=== PATIENT | male | born 1955 | race Caucasian/White ===

== ENCOUNTER 2016-11-11 16:40 | Emergency (ER) | payer SELFPAY ==
[~2016-11-11] VITALS: Ht 180.3 cm; Wt 69.0 kg
[~2016-11-11 16:40] MED LIST: AMLO5TAB96 PO; CLIN150 PO; IBUP600T26 PO; LISI-360 PO
[2016-11-11 16:42] VITALS: BP 226/126; PULSE 95; RESP 17; TEMP 98; O2SAT 96
[2016-11-11 17:23] VITALS: BP 202/117; PULSE 80
[2016-11-11] MEDS ORDERED: LISI-515 PO ×2 (18:35→20:13)
[2016-11-11] MEDS ORDERED: AMLO5 PO (18:35)
[2016-11-11 18:43] VITALS: BP 207/120; PULSE 81; RESP 18
--- NOTE | 2016-11-11 18:50 | PD ---
HPI Chief Complaint: Fall Time Seen by Provider: 18:50 Travel History International Travel<30 days: No Contact w/Intl Traveler<30days: No Traveled to known affect area: No History of Present Illness HPI 61-year-old male presents to the emergency department for evaluation of right lateral chest wall pain after a fall 2 days ago. Patient states that he tripped and fell hitting his right ribs against a corner of a washing machine. He denies hitting his head or any LOC. Patient Denies any neck pain or back pain. No abdominal pain. No nausea or vomiting. He has been ambulatory. Patient states he would like to know if he broke a rib. He does report a history of hypertension and is supposed to be taking lisinopril, amlodipine, hydrochlorothiazide. However, he states he has not taken these since August. Patient denies any associated complaints. He denies any other complaints at this time. PFSH Past Medical History Cardiovascular Problems: Yes (HTN) Diminished Hearing: No Hypertension: Yes Immunizations Current: Yes Tetanus Vaccination: < 5 Years Influenza Vaccination: No Past Surgical History Surgical History: No Previous Surgery Social History Alcohol Use: Yes (occasionally) Tobacco Use: Yes (one pack per day) Substance Use: No Allergies-Medications (Allergen,Severity, Reaction): Coded Allergies: No Known Allergies (Unverified , 11/11/16) Reported Meds & Prescriptions Reported Meds & Active Scripts Active Lortab (Hydrocodone-Acetaminophen) 5-325 Mg Tab 1 Tab PO Q6H PRN Reported Lisinopril 20 Mg Tab 20 Mg PO DAILY Norvasc (Amlodipine Besylate) 5 Mg Tab 5 Mg PO DAILY Review of Systems Except as stated in HPI: all other systems reviewed are Neg Physical Exam Narrative GENERAL: Well-developed well-nourished male patient ambulatory. Afebrile., SKIN: Warm and dry. HEAD: Normocephalic. Atraumatic. ENT: Mucosa pink and moist. No erythema or exudates. No uvular edema. No uvular , palatal, or tonsillar deviation. Airway patent. Nasal turbinates appear normal without nasal blood, purulent drainage or septal hematoma. Bilateral tympanic membranes are clear without erythema or perforation. EYES: No scleral icterus. No injection or drainage. NECK: Supple, trachea midline. No JVD or lymphadenopathy. CARDIOVASCULAR: Regular rate and rhythm without murmurs, gallops, or rubs. RESPIRATORY: Breath sounds equal bilaterally. No accessory muscle use. Lungs sounds are clear to auscultation. GASTROINTESTINAL: Abdomen soft, non-tender, nondistended. No abdominal pain to palpation. MUSCULOSKELETAL: No cyanosis, or edema. Patient has tenderness to palpation over right anterior/lateral chest wall. BACK: Nontender without obvious deformity. No CVA tenderness. Data Data Last Documented VS Vital Signs Date Time Temp Pulse Resp B/P Pulse Ox O2 Delivery O2 Flow Rate FiO2 11/11/16 19:22 76 18 220/110 Room Air 11/11/16 19:22 98 11/11/16 16:42 98.0 Orders Ribs, Uni (W/Exp Cxr-Min 3vw) (11/11/16 ) Lisinopril (Prinivil) (11/11/16 19:00) Amlodipine (Norvasc) (11/11/16 19:00) Resp Incentive Spirometry (11/11/16 ) Oxycodone-Acetamin 5-325 Mg (Percocet (11/11/16 20:15) MDM Medical Decision Making Medical Screen Exam Complete: Yes Emergency Medical Condition: Yes Medical Record Reviewed: Yes Interpretation(s) Last Impressions Ribs X-Ray 11/11/16 0000 Signed Impressions: Service Date/Time: October 19:03 - CONCLUSION: Minimally displaced right fifth and sixth rib fractures without pneumothorax. Mynor Martinez MD Differential Diagnosis Rib fracture versus rib contusion versus pneumothorax Narrative Course 61-year-old male presents to the emergency department for evaluation of right rib pain after a trip and fall 2 days ago. Patient is hypertensive in the emergency department, however, he has not been taking his prescribed blood pressure medication in 2 months. Patient is given dose of lisinopril and amlodipine in the emergency department. X-ray of the right ribs with chest are ordered and pending. X-ray of the right ribs with chest shows minimally displaced right fifth and sixth rib fractures without pneumothorax. Patient is given incentive spirometer. He'll be discharged with a short-term prescription for Lortab. Patient also be given prescriptions for his Lortab and amlodipine. He is encouraged to follow his primary care physician for further refills. He is encouraged to continue deep breathing and follow up with his primary care physician. He verbalizes agreement and understanding. Diagnosis Primary Impression: Right rib fracture Qualified Code: S22.41XA - Closed fracture of multiple ribs of right side, initial encounter Additional Impression: Hypertension Qualified Code: I10 - Essential hypertension Referrals: Primary Care Physician call for appointment Patient Instructions: General Instructions, Rib Fracture (ED) Additional Instructions: Rotate ice/heat. Take Lortab as directed as needed for pain. Caution this can make you drowsy since do not drive after taking. Make sure you continue to take deep breaths. Use incentive spirometer. Your blood pressure was elevated today. I have given you refills of your blood pressure medications. He felt your primary care physician for further refills. Follow-up with your primary care physician. Return to the emergency department for any acute worsening of symptoms. Med/Other Pt SpecificInfo: Prescription(s) given Scripts Lisinopril 20 Mg Tab20 Mg PO DAILY #30 TAB Ref 0 Prov:Ambreen Holt 11/11/16 Amlodipine 5 Mg Tab5 Mg PO DAILY #30 TAB Ref 0 Prov:Ambreen Holt 11/11/16 Hydrocodone-Acetaminophen (Lortab)5-325 Mg Tab1 Tab PO Q6H PRN (PAIN) #16 TAB Ref 0 Prov:Daniel Herr MD 11/11/16 Disposition: 01 DISCHARGE HOME Condition: Stable Ambreen Holt Nov 11, 2016 18:50
[2016-11-11] MEDS ORDERED: LISINOPRIL 20 MG TAB PO ONE (19:00)
[2016-11-11] MEDS ORDERED: amLODIPine BESYLATE 5 MG TAB PO ONE (19:00)
--- NOTE | 2016-11-11 19:21 | RADRPT ---
EXAM DATE/TIME: 11/11/2016 19:03 [facility] COMPARISON: No previous studies available for comparison. INDICATIONS : Right rib pain after fall on corner of [employer] machine. MEDICAL HISTORY : None. SURGICAL HISTORY : None. ENCOUNTER: Initial ACUITY: 3 days PAIN SCORE: 8/10 LOCATION: Right lateral ribs. FINDINGS: Minimally displaced fractures are seen anterolaterally the right fifth and sixth ribs. A tiny right p leural effusion is suspected. I don't see a pneumothorax. No chest wall emphysema seen. CONCLUSION: Minimally displaced right fifth and sixth rib fractures without pneumothorax. Mynor Martinez MD on November 11, 2016 at 19:19 Board Certified Radiologist. This report was verified electronically.
[2016-11-11 19:22] VITALS: BP 220/110; PULSE 76; RESP 18
[2016-11-11] MEDS ORDERED: HYDR-3533 PO (20:04)
[2016-11-11 20:13] VITALS: BP 196/100; PULSE 79; RESP 17; O2SAT 99
[2016-11-11] MEDS ORDERED: AMLO5TAB2 PO (20:13)
[2016-11-11] MEDS ORDERED: oxyCODONE/ACETAMINOPHEN 5 MG/325 MG TAB PO ONE (20:15)
[2016-11-11 20:40] VITALS: BP 160/86; TEMP 97.8
== END 2016-11-11 20:40 | disposition home or self-care (01) ==
LOC: NEPA 16:40
DX: S22.41XA Multiple fractures of ribs, right side, initial encounter for closed fracture (principal); W22.09XA Striking against other stationary object, initial encounter; W18.30XA Fall on same level, unspecified, initial encounter; I10 Essential (primary) hypertension; F17.210 Nicotine dependence, cigarettes, uncomplicated
CPT/HCPCS: 71101; 94150; 99284

== ENCOUNTER 2017-02-24 13:15 | Emergency (ER) | payer SELFPAY ==
[~2017-02-24] VITALS: Ht 180.3 cm; Wt 73.0 kg
[~2017-02-24 13:15] MED LIST changes: +AMLO5 PO; +AMLO5TAB2 PO; -AMLO5TAB96 PO; -CLIN150 PO; +HYDR-3533 PO; -IBUP600T26 PO; -LISI-360 PO; +LISI-515 PO
[2017-02-24 13:16] VITALS: BP 217/127; PULSE 84; RESP 17; TEMP 98.4; O2SAT 99
[2017-02-24] MEDS ORDERED: HYDROmorphone HCL PF 1 MG/ML VIAL IV PUSH ONE ×2 (14:00→15:45)
[2017-02-24 14:31] LABS: BACTERIA, URINE RARE /hpf; BLOOD, URINE SMALL (NEG); COMMENT (UR) CULTURE INDICATED; CULTURE IF INDICATED CULTURE INDICATED; GLUCOSE,URINE NEG (NEG); KETONE, URINE NEG (NEG); NITRITE,URINE NEG (NEG); SQUAMOUS EPITHELIAL CELL URINE 1 /hpf (0-5); URINE COLOR YELLOW (YELLW/STRAW)
[2017-02-24 14:52] LABS: ALKALINE PHOSPHATASE 111 U/L (45-117); TOTAL BILIRUBIN ADULT 1.2 MG/DL (0.2-1.0)
[2017-02-24 15:21] VITALS: BP 254/129; PULSE 81; RESP 17; O2SAT 99
[2017-02-24 15:22] LABS: BASOPHIL % 0.2 % (0.0-2.0); EOSINOPHIL # 0.4 TH/MM3 (0-0.4); EOSINOPHIL % 2.2 % (0.0-4.0); HEMATOCRIT 41.5 % (39.0-51.0); LYMPH % 16.4 % (9.0-44.0); LYMPHOCYTE # 2.7 TH/MM3 (1.0-4.8); MEAN CORPUSCULAR HEMOGLOBIN 31.6 PG (27.0-34.0); MEAN CORPUSCULAR HGB CONC 34.7 % (32.0-36.0); NEUT % 72.2 % (16.0-70.0); PLATELET COUNT 154 TH/MM3 (150-450); RED BLOOD COUNT 4.56 MIL/MM3 (4.50-5.90); RED CELL DISTRIBUTION WIDTH 13.1 % (11.6-17.2); WHITE BLOOD COUNT 16.7 TH/MM3 (4.0-11.0)
[2017-02-24 15:23] LABS: HEMO FLAGS AUTO DIFF
[2017-02-24] MEDS ORDERED: LISINOPRIL 10 MG TAB PO ONE (15:30)
[2017-02-24 15:41] LABS: ALT (GPT) 66 U/L (12-78); ANION GAP 5 MEQ/L (5-15); AST (GOT) 84 U/L (15-37); BICARBONATE 27.6 MEQ/L (21.0-32.0); BLOOD UREA NITROGEN 13 MG/DL (7-18); CHLORIDE 102 MEQ/L (98-107); GLOMERULAR FILTRATION RATE 61 ML/MIN (>89); SODIUM (NA) 135 MEQ/L (136-145)
[2017-02-24 15:46] LABS: POTASSIUM 3.6 MEQ/L (3.5-5.1)
--- NOTE | 2017-02-24 15:48 | PD ---
HPI Chief Complaint: Complaint Time Seen by Provider: 13:46 Travel History International Travel<30 days: No Contact w/Intl Traveler<30days: No Traveled to known affect area: No History of Present Illness HPI Patient is a 61-year-old male who comes in complaining of right testicular pain and swelling. He says that the pain started 2 days ago and has gotten worse. He reports 3 days ago he slipped getting off the bus and his legs spread apart. He said he did not fall at the time. He does say that he has some pain to the left side of his neck. He did not his head or lose consciousness. He denies any chest pain or shortness of breath. He denies any abdominal pain. He denies any penile discharge, and says he has not been sexually active recently. [facility] Past Medical History Cardiovascular Problems: Yes (HTN) Diminished Hearing: No Hypertension: Yes Immunizations Current: Yes Tetanus Vaccination: > 5 Years Influenza Vaccination: No Past Surgical History Surgical History: No Previous Surgery Social History Alcohol Use: Yes (occasionally) Tobacco Use: Yes (one pack per day) Substance Use: No Allergies-Medications (Allergen,Severity, Reaction): Coded Allergies: No Known Allergies (Unverified , 02/24/17) Reported Meds & Prescriptions Reported Meds & Active Scripts Active No Active Prescriptions or Reported Medications Review of Systems Except as stated in HPI: all other systems reviewed are Neg General / Constitutional: No: Fever, Chills HENT: No: Headaches, Lightheadedness Cardiovascular: No: Chest Pain or Discomfort Respiratory: No: Shortness of Breath Gastrointestinal: No: Abdominal Pain Genitourinary: Positive: Other (testicular pain) Musculoskeletal: Positive: Myalgias Skin: No Rash, No Change in Pigmentation Neurologic: No: Weakness, Dizziness, Paresthesia Physical Exam Narrative GENERAL: Awake and alert, in no acute distress. SKIN: Focused skin assessment warm/dry. HEAD: Atraumatic. Normocephalic. EYES: Pupils equal and round. No scleral icterus. ENT: Mucous membranes pink and moist. NECK: Trachea midline. No JVD. CARDIOVASCULAR: Regular rate and rhythm. No murmur appreciated. RESPIRATORY: No accessory muscle use. Clear to auscultation. Breath sounds equal bilaterally. GASTROINTESTINAL: Abdomen soft, non-tender, nondistended. : Performed in the presence of a female nurseAlly. Large swelling to the right testicle, vertical lay. Tender to palpation of the testicle, worst on the epididymis. MUSCULOSKELETAL: No obvious deformities. No clubbing. No cyanosis. No edema. NEUROLOGICAL: Awake and alert. No obvious cranial nerve deficits. Motor grossly within normal limits. Normal speech. PSYCHIATRIC: Appropriate mood and affect; insight and judgment normal. Data Data Last Documented VS Vital Signs Date Time Temp Pulse Resp B/P Pulse Ox O2 Delivery O2 Flow Rate FiO2 02/24/17 16:26 20 02/24/17 16:09 108 236/117 99 Room Air Orders Complete Blood Count With Diff (02/24/17 13:53) Comprehensive Metabolic Panel (02/24/17 13:53) Lactic Acid (02/24/17 13:53) Urinalysis - C+S If Indicated (02/24/17 13:53) Us Testicles W Doppler (02/24/17 ) Hydromorphone Pf Inj (Dilaudid Pf Inj) (02/24/17 14:00) Urine Culture (02/24/17 14:15) Amlodipine (Norvasc) (02/24/17 15:30) Lisinopril (Prinivil) (02/24/17 15:30) Gc And Chlamydia Pcr (02/24/17 15:30) Hydromorphone Pf Inj (Dilaudid Pf Inj) (02/24/17 15:45) Ceftriaxone Inj (Rocephin Inj) (02/24/17 16:45) Labs Laboratory Tests Test 02/24/17 02/24/17 14:15 14:50 Urine Color YELLOW Urine Turbidity HAZY Urine pH 6.0 Urine Specific Tillman 1.016 Urine Protein TRACE mg/dL Urine Glucose (UA) NEG mg/dL Urine Ketones NEG mg/dL Urine Occult Blood SMALL Urine Nitrite NEG Urine Bilirubin NEG Urine Urobilinogen 8.0 MG/DL Urine Leukocyte Esterase LARGE Urine RBC 9 /hpf Urine WBC 60 /hpf Urine Squamous Epithelial 1 /hpf Cells Urine Bacteria RARE /hpf Microscopic Urinalysis Comment CULTURE INDICATED Sodium Level 135 MEQ/L Potassium Level 3.6 MEQ/L Chloride Level 102 MEQ/L Carbon Dioxide Level 27.6 MEQ/L Anion Gap 5 MEQ/L Blood Urea Nitrogen 13 MG/DL Creatinine 1.22 MG/DL Estimat Glomerular Filtration 61 ML/MIN Rate Random Glucose 90 MG/DL Lactic Acid Level 0.8 mmol/L Calcium Level 9.0 MG/DL Total Bilirubin 1.2 MG/DL Aspartate Amino Transf 84 U/L (AST/SGOT) Alanine Aminotransferase 66 U/L (ALT/SGPT) Alkaline Phosphatase 111 U/L Total Protein 8.6 GM/DL Albumin 3.5 GM/DL White Blood Count 16.7 TH/MM3 Red Blood Count 4.56 MIL/MM3 Hemoglobin 14.4 GM/DL Hematocrit 41.5 % Mean Corpuscular Volume 91.0 FL Mean Corpuscular Hemoglobin 31.6 PG Mean Corpuscular Hemoglobin 34.7 % Concent Red Cell Distribution Width 13.1 % Platelet Count 154 TH/MM3 Mean Platelet Volume 8.3 FL Neutrophils (%) (Auto) 72.2 % Lymphocytes (%) (Auto) 16.4 % Monocytes (%) (Auto) 9.0 % Eosinophils (%) (Auto) 2.2 % Basophils (%) (Auto) 0.2 % Neutrophils # (Auto) 12.0 TH/MM3 Lymphocytes # (Auto) 2.7 TH/MM3 Monocytes # (Auto) 1.5 TH/MM3 Eosinophils # (Auto) 0.4 TH/MM3 Basophils # (Auto) 0.0 TH/MM3 CBC Comment AUTO DIFF Differential Comment AUTO DIFF CONFIRMED Platelet Estimate NORMAL Platelet Morphology Comment NORMAL MDM Medical Decision Making Medical Screen Exam Complete: Yes Emergency Medical Condition: Yes Medical Record Reviewed: Yes Differential Diagnosis Epididymitis versus orchitis versus hernia versus STD Narrative Course Patient is a 61-year-old male comes in complaining of severe right testicular pain. Exam shows swelling and tenderness along the epididymis. There is no hernia palpated. IV established, labs sent. Patient given Dilaudid for pain. Labs show blood cell count of 16.7. Urinalysis is positive for infection. Patient reports she has not been sexually active in a very long time and does not think he has been exposed to gonorrhea or chlamydia. Ultrasound performed shows evidence of epididymoorchitis. Patient given Rocephin here. discharged with prescription for Levaquin (given goodrx coupon). Mandatory referral placed to urology. Patient given strict return precautions. Diagnosis Primary Impression: Epididymo-orchitis Referrals: Lux Kraft MD call for appointment Patient Instructions: Epididymo-Orchitis (ED), General Instructions Additional Instructions: Take all of your antibiotics. Take Ibuprofen as needed for pain, Lortab for severe pain. You can use ice for pain control (make sure to place a barrier between the ice and your skin). Follow up with urology. Return to the ED as needed for any worsening symptoms. Scripts Hydrocodone-Acetaminophen (Lortab)5-325 Mg Tab1 Tab PO Q6H PRN (PAIN) #12 TAB Ref 0 Prov:Francesca Buitrago MD 02/24/17 Levofloxacin (Levaquin)500 Mg Cds983 Mg PO DAILY 10 Days Ref 0 Prov:Francesca Buitrago MD 02/24/17 Disposition: 01 DISCHARGE HOME Condition: Stable Francesca Buitrago MD February 24, 2017 15:48
[2017-02-24 15:58] LABS: PLATELET ESTIMATE SMEAR NORMAL (NORMAL); PLATELET MORPHOLOGY NORMAL (NORMAL); SCAN/DIFF AUTO DIFF CONFIRMED
[2017-02-24 16:09] VITALS: BP 236/117; PULSE 108; RESP 17; O2SAT 99
--- NOTE | 2017-02-24 16:22 | RADRPT ---
EXAM DATE/TIME: 02/24/2017 15:50 [facility] COMPARISON: No previous studies available for comparison. INDICATIONS : Right testicle pain and redness. MEDICAL HISTORY : Hypertension. SURGICAL HISTORY : None. ENCOUNTER: Initial ACUITY: 2 days PAIN SCORE: 6/10 LOCATION: Bilateral testicle. MEASUREMENTS: RIGHT TESTICLE: 4.7 x 3.7 x 3.2cm LEFT TESTICLE: 4.5 x 3.5 x 2.1cm FINDINGS: RIGHT TESTICLE: Homogeneous echotexture without intra or extratesticular mass. Blood flow is asymmetrically increase d within the testicle and epididymis. Epididymis is mildly enlarged. There is a small complex hydroce le. No varicocele. LEFT TESTICLE: Homogeneous echotexture without intra or extratesticular mass. Blood flow is symmetric and within no rmal limits. No hydrocele or varicocele. Epididymis is within normal limits. SCROTUM: Within normal limits. CONCLUSION: 1. The above findings are diagnostic of right epididymoorchitis with complex small hydrocele likely r elated to infection. 2. Left testicle has a normal appearance. Mynor Fang MD on February 24, 2017 at 16:18 Board Certified Radiologist. This report was verified electronically.
[2017-02-24] MEDS ORDERED: LEVA500T PO (16:40)
[2017-02-24] MEDS ORDERED: HYDR-3533 PO (16:40)
[2017-02-24] MEDS ORDERED: cefTRIAXone INJ 1,000 MG in SODIUM CHLORIDE 0.9% INJ 100 ML IV ONE (16:45)
[2017-02-24 17:05] VITALS: BP 182/110; PULSE 95; RESP 16; O2SAT 99
[2017-02-24 17:45] LABS: CHLAMYDIA PCR NOT DETECTED (NOT DETECT); NEISSERIA PCR NOT DETECTED (NOT DETECT)
== END 2017-02-24 17:33 | disposition home or self-care (01) ==
LOC: NEPD 13:15
DX: N45.3 Epididymo-orchitis (principal); I10 Essential (primary) hypertension; F17.210 Nicotine dependence, cigarettes, uncomplicated; B96.20 Unspecified Escherichia coli [E. coli] as the cause of diseases classified elsewhere
CPT/HCPCS: 76870; 80053; 81001; 83605; 85025; 87077; 87086; 87186; 87491; 87591; 93975; 96365; 96375; 96376; 99284; J0696; J1170

== ENCOUNTER 2018-02-25 16:29 | Emergency (ER) | payer SELFPAY ==
[~2018-02-25 16:29] MED LIST changes: -AMLO5 PO; -AMLO5TAB2 PO; +LEVA500T PO; -LISI-515 PO
[2018-02-25 17:08] VITALS: BP 142/86; PULSE 78; RESP 18; TEMP 98; O2SAT 97
[2018-02-25] MEDS ORDERED: HYDR12.57 PO (17:18)
[2018-02-25] MEDS ORDERED: AMLO10 PO (17:18)
[2018-02-25] MEDS ORDERED: LISI-515 PO (17:18)
[2018-02-25] MEDS ORDERED: ASPI-516 CHEW (17:18)
[2018-02-25] MEDS ORDERED: MORPHINE SULFATE 2 MG/ML SYRINGE IV PUSH ONE (17:30)
[2018-02-25] MEDS ORDERED: TETANUS/DIPHTHERIA TOXOID ADULT 0.5 ML VIAL IM ONE (17:30)
--- NOTE | 2018-02-25 17:34 | PD ---
HPI Chief Complaint: Injury Time Seen by Provider: 17:27 Travel History International Travel<30 days: No Contact w/Intl Traveler<30days: No Traveled to known affect area: No History of Present Illness HPI 62-year-old male here for evaluation of left arm injury. The patient states that he tripped walking down 2 steps and struck his left arm against the wall. He denies head injury or LOC. He did sustain a laceration to the palmar surface of his left hand which he believes was on a staple on the wall. Pain is mainly in the patient's left shoulder and arm and is moderate to severe, constant, worse with movement and palpation, slightly improved with rest. No head neck or back pain. He has mild pain in his left forearm and hand which is also worse with movements. He is right-hand dominant. PFSH Past Medical History Cardiovascular Problems: Yes (HTN) Diminished Hearing: No Hypertension: Yes Immunizations Current: Yes Tetanus Vaccination: < 5 Years Past Surgical History Surgical History: No Previous Surgery Social History Alcohol Use: Yes (occasionally) Tobacco Use: Yes (one pack per day) Substance Use: No Allergies-Medications (Allergen,Severity, Reaction): Coded Allergies: No Known Allergies (Unverified Adverse Reaction, Unknown, 02/25/18) Reported Meds & Prescriptions Reported Meds & Active Scripts Active Reported Aspirin 81 Mg Chew 81 Mg CHEW DAILY Hydrochlorothiazide 12.5 Mg Cap 12.5 Mg PO DAILY Norvasc (Amlodipine Besylate) 10 Mg Tab 10 Mg PO DAILY Lisinopril 20 Mg Tab 20 Mg PO DAILY Review of Systems Except as stated in HPI: all other systems reviewed are Neg Physical Exam Narrative GENERAL: Well-developed, well-nourished, awake, alert, no apparent distress. SKIN: Focused skin assessment warm/dry. V-shaped laceration to the hyporthenar eminence of the left hand, moderate depth, no visible contaminants, no active bleeding. HEAD: Atraumatic. Normocephalic. EYES: Pupils equal and round. No scleral icterus. No injection or drainage. ENT: Mucous membranes pink and moist. NECK: Trachea midline. No JVD. No midline cervical spine step-off or tenderness. CARDIOVASCULAR: Regular rate and rhythm. Bilateral distal radial pulses are brisk and equal. RESPIRATORY: No accessory muscle use. Clear to auscultation. Breath sounds equal bilaterally. MUSCULOSKELETAL: Left upper extremity without obvious deformity with moderate diffuse tenderness to the left shoulder and left humerus. Skin exam as above. All compartments in the left upper extremity are supple. Left upper extremity is neurovascularly intact. NEUROLOGICAL: Awake and alert. No obvious cranial nerve deficits. Motor grossly within normal limits. Normal speech. PSYCHIATRIC: Appropriate mood and affect; insight and judgment normal. Data Data Last Documented VS Vital Signs Date Time Temp Pulse Resp B/P (MAP) Pulse Ox O2 Delivery O2 Flow Rate FiO2 02/25/18 17:08 98.0 78 18 142/86 (104) 97 Orders Orders Morphine Inj (Morphine Inj) (02/25/18 17:30) Humerus (Min 2vws) (02/25/18 ) Tetanus/Diphtheria Tox Adult (Tetanus/Di (02/25/18 17:30) Morphine Inj (Morphine Inj) (02/25/18 18:00) Mandatory Outpatient Referral (02/25/18 18:34) Splinting (02/25/18 ) [facility] Medical Decision Making Medical Screen Exam Complete: Yes Emergency Medical Condition: Yes Differential Diagnosis Proximal humerus fracture, humerus fracture, shoulder dislocation, Narrative Course Patient was unable to tolerate left forearm and hand x-ray secondary to pain. He states his pain is mainly in his left humerus. Left humerus x-ray shows spiral/comminuted fracture of the humeral shaft/ proximal humerus with mild displacement. Left upper extremity is neurovascularly intact, and all compartments are supple. Case discussed with orthopedist Dr. Lloyd's INDERJIT Lujan who recommends coaptation splint with posterior long-arm splint and orthopedic follow-up as an outpatient. Patient made aware of all findings. He will be given a prescription for hydrocodone. He was advised on when to return to the emergency department. He verbalizes understanding and agreement with plan. Diagnosis Primary Impression: Closed left humeral fracture Qualified Codes: S42.352A - Displaced comminuted fracture of shaft of humerus , left arm, initial encounter for closed fracture Referrals: Saad Lloyd MD 3 days Orthopedist Additional Instructions: Follow-up with orthopedist Dr. Lloyd this week. Return to the emergency department for worsening symptoms or any other concerns. Scripts Hydrocodone-Acetaminophen (Hydrocodone-Acetaminophen) 5-325 mg Tab 1 TAB PO Q6H Y for PAIN, #20 TAB 0 Refills Prov: Jacob Wolfe MD 02/25/18 Disposition: 01 DISCHARGE HOME Condition: Stable Jacob Wolfe MD February 25, 2018 17:34
[2018-02-25] MEDS ORDERED: MORPHINE SULFATE 8 MG/ML INJ IV PUSH ONE (18:00)
[2018-02-25] MEDS ORDERED: HYDR-3516 PO (18:39)
--- NOTE | 2018-02-25 19:00 | RADRPT ---
EXAM DATE/TIME: 02/25/2018 18:05 [facility] COMPARISON: No previous studies available for comparison. INDICATIONS : Left Mid humeral pain MEDICAL HISTORY : None. SURGICAL HISTORY : None. ENCOUNTER: Initial ACUITY: 1 day PAIN SCORE: 9/10 LOCATION: Left hurmerus FINDINGS: 4 views of left humerus. Spiral mildly comminuted fracture of the proximal to mid humerus shaft. 6 mm displacement of the distal fragment. Glenohumeral joint alignment within normal limits. CONCLUSION: Spiral proximal humerus shaft fracture. Ari Jimenez MD on February 25, 2018 at 18:57 Board Certified Radiologist. This report was verified electronically.
== END 2018-02-25 19:13 | disposition home or self-care (01) ==
LOC: NEPD 16:29
DX: S42.352A Displaced comminuted fracture of shaft of humerus, left arm, initial encounter for closed fracture (principal); S61.412A Laceration without foreign body of left hand, initial encounter; W10.9XXA Fall (on) (from) unspecified stairs and steps, initial encounter; I10 Essential (primary) hypertension; F17.200 Nicotine dependence, unspecified, uncomplicated; Z23 Encounter for immunization
CPT/HCPCS: 29105; 29125; 29240; 73060; 90471; 90714; 96374; 99284; J2270